=== PATIENT | female | born 1990 | race Caucasian/White ===

== ENCOUNTER → 2021-03-01 13:47 | Outpatient (CLI) | payer OTHER, MEDICAID, SELFPAY ==
[2021-03-01 14:46] LABS: Add Manual Diff / Slide Review NO; Basophils Absolute Auto 0 /uL (0-100); Basophils Percent Auto 0.3 % (0-2); Eosinophils Absolute Auto 100 /uL (0-450); Eosinophils Percent Auto 0.9 % (2-4); Hematocrit 37.3 % (36-46); Hemoglobin 12.7 g/dL (12.0-16.0); Lymphocytes Absolute Auto 2100 /uL (1100-4500); Lymphocytes Percent Auto 24.8 % (25-40); Mean Corpuscular Hemoglobin 32.9 PG (26-34); Monocytes Absolute Auto 800 /uL (0-900); Monocytes Percent Auto 9.5 % (3-14); Neutrophils Absolute Auto 5400 /uL (1500-7000); Neutrophils Percent Auto 64.5 % (50-75); Platelet Count 270 X10^3/uL (150-400); Red Blood Cell Count 3.85 X10^6/uL (4.0-5.2); Red Cell Distribution Width 12.4 % (11.6-14.8); White Blood Cell Count 8.4 X10^3/uL (4.5-11.0)
[2021-03-01 15:14] LABS: Free T4, Direct Thyroxine 0.97 ng/dL (0.78-2.19)
[2021-03-01 15:28] LABS: Thyroid Stimulating Hormone 2.89 uIU/mL (0.47-4.68)
[2021-03-01 15:31] LABS: Appearance Urine UA CLEAR; Bilirubin Urine UA NEGATIVE (NEGATIVE); Color Urine UA YELLOW; Ketones Urine UA NEGATIVE (NEGATIVE); Leukocyte Esterase Urine UA NEGATIVE (NEGATIVE); Nitrite Urine UA NEGATIVE (Negative); Occult Blood Urine UA NEGATIVE (Negative); Protein Urine UA NEGATIVE (Negative); Specific Gravity Urine UA 1.025 (1.000-1.035); Urobilinogen Urine UA 0.2 E.U./dL (0.2)
[2021-03-01 15:46] LABS: Glucose Urine UA NEGATIVE (Negative)
[2021-03-01 17:43] LABS: Hepatitis B Surface Antigen NEGATIVE s/c (NEGATIVE); Rubella Antibody IgG 56.7 IU/mL (>15)
[2021-03-01 17:47] LABS: HIV 1 & 2 Ab/Ag 4th Gen Combo NEGATIVE (NEGATIVE); Hep C Virus Ab w/Reflex Quant NEGATIVE s/c (NEGATIVE)
[2021-03-02 10:19] LABS: RPR Screen Non Reactive (Non Reactive); Varicella IgG Antibody 1154 index (Immune >165)
== END ==
PROVIDERS: Referring Provider Specialist; Visit Provider Specialist
DX: Z34.82 Encounter for supervision of other normal pregnancy, second trimester (principal)
CPT/HCPCS: 36415; 80055; 81003; 84439; 84443; 86787; 86803; 86850; 86900; 86901; 87086; 87389

== ENCOUNTER → 2021-03-20 16:10 | Outpatient (CLI) | payer OTHER, MEDICAID, SELFPAY ==
[2021-03-21 13:30] LABS: Urine N gonorrhoeae NOT DETECTED
[2021-03-21 13:31] LABS: Urine Chlamydia NOT DETECTED
== END ==
PROVIDERS: Visit Provider Specialist
DX: Z34.81 Encounter for supervision of other normal pregnancy, first trimester (principal); R52 Pain, unspecified; Z3A.10 10 weeks gestation of pregnancy
CPT/HCPCS: 87086; 87491; 87591

== ENCOUNTER → 2021-05-23 12:15 | Outpatient (CLI) | payer OTHER, MEDICAID, SELFPAY ==
--- NOTE | 2021-05-23 12:17 | DI.US.S_ITS ---
PROCEDURE: US OB >= 14 WEEKS FETUS INDICATIONS: ANATOMY OUTSIDE/PRIOR DATING DATA: Last menstrual period (LMP): 01/04/21 . LMP-based estimated date of delivery (CONG): 10/11/21 . First dating scan (date and location): 03/01/21 . Estimated date of delivery (CONG) from first dating scan: 10/11/21 . TECHNIQUE: Real-time scanning was performed of the fetus, with image documentation and biometric measurements. Endovaginal scanning: For improved cervical detail COMPARISON: None. FINDINGS: General: A single living intrauterine gestation is present. Presentation: Variable. Placenta: Placental position is posterior with the edge within 2 cm of the internal cervical os Amniotic fluid index: 10.6 cm, normal range is 5-24 cm. heart rate: 153 beats per minute. Maternal cervical canal: 5.1 cm long. Normal lower limit is 2.5 cm. biometrics: Biparietal diameter: 4.5 cm, 19 weeks, four days Head circumference: 17.0 cm, 19 weeks, four days Abdominal circumference: 14.9 cm, 20 weeks, one day Femur length: 3.3 cm, 20 weeks, two days Estimated gestational age from initial scan: 19 weeks, six days Composite gestational age from present scan: 19 weeks, six days Estimated weight and percentile: 336 g, 63rd percentile Anatomic survey: Neuro: Ventricles are non-dilated at less than 10 mm. Cisterna magna is normal at 3-11 mm. Cerebellum is normal in size and morphology. Nuchal skin fold: Normal at less than 6 mm between 14-21 weeks gestational age. Face: Nose and lips, facial profile are normal. Spine: No evidence for spina bifida. Heart: 4-chambered heart is present, with normal ventricular outflow tracts. Diaphragm: Diaphragm is intact. Stomach: Left-sided stomach is present. Kidneys: No hydronephrosis. Normal is less than 5 mm in 2nd trimester, less than 7 mm in 3rd trimester. Cord: 3-vessel cord has orthotopic insertion. Bladder: Normal in size. Extremities: All 4 extremities identified. IMPRESSION: 1. Single living with appropriate growth and normal anatomy. 2. Posterior low-lying placenta. Follow-up ultrasound in early 3rd trimester is recommended. Dictated by: Elin Davila M.D. on 05/23/2021 at 14:41 Approved by: Elin Davila M.D. on 05/23/2021 at 14:49
== END ==
PROVIDERS: Referring Provider Specialist; Visit Provider Specialist
DX: Z34.82 Encounter for supervision of other normal pregnancy, second trimester (principal); Z3A.19 19 weeks gestation of pregnancy
CPT/HCPCS: 76811; 76817; 87210

== ENCOUNTER → 2021-09-17 14:59 | Outpatient (CLI) | payer OTHER, MEDICAID, SELFPAY ==
[2021-09-21 16:20] LABS: Strep Grp B PCR NEG for Grp B Strep
== END ==
PROVIDERS: Visit Provider Specialist
DX: Z34.83 Encounter for supervision of other normal pregnancy, third trimester (principal); Z3A.36 36 weeks gestation of pregnancy
CPT/HCPCS: 87653

== ENCOUNTER 2021-10-03 18:14 | Inpatient (IN) | payer OTHER, MEDICAID, SELFPAY ==
[2021-10-03 19:05] LABS: Add Manual Diff / Slide Review NO; Basophils Absolute Auto 0 /uL (0-100); Basophils Percent Auto 0.4 % (0-2); Eosinophils Absolute Auto 0 /uL (0-450); Eosinophils Percent Auto 0.3 % (2-4); Hematocrit 37.4 % (36-46); Hemoglobin 12.8 g/dL (12.0-16.0); Lymphocytes Absolute Auto 1600 /uL (1100-4500); Lymphocytes Percent Auto 18.4 % (25-40); Mean Corpuscular HGB Conc 34.3 % (30-36); Mean Corpuscular Hemoglobin 32.1 PG (26-34); Mean Corpuscular Volume 93.8 fL (80-100); Monocytes Absolute Auto 800 /uL (0-900); Monocytes Percent Auto 9.5 % (3-14); Neutrophils Absolute Auto 6000 /uL (1500-7000); Neutrophils Percent Auto 71.4 % (50-75); Platelet Count 215 X10^3/uL (150-400); Red Blood Cell Count 3.99 X10^6/uL (4.0-5.2); Red Cell Distribution Width 13.9 % (11.6-14.8); White Blood Cell Count 8.5 X10^3/uL (4.5-11.0)
[2021-10-03 19:21] LABS: COVID19 - ADMIT (NP swab/PCR) Negative (Negative)
[2021-10-03] MEDS: DINOPROSTONE VAG (CERVIDIL) 10 MG VAG (19:44)
[2021-10-04 08:14] VITALS: BP 127/65
--- NOTE | 2021-10-04 08:39 | PM.OBHP.IH.1 ---
OB HPI Date/Time Date of admission: 10/04/21 Date Patient Seen: 10/04/21 Time Patient Seen: 08:30 History of Present Condition Chief complaint: observation of labor CONG Calculator Estimated Delivery Date Method Current WG Current Estimate 10/11/21 LMP (Uncertain) 39w 0d Other Estimates 10/11/21 Ultrasound #1 39w 0d Estimated Gestational Age (weeks): 39 : 4 Para: 3 Narrative: This patient is a 31yo @39+0 presenting for an elective induction of labor. The patient reports feeling well this AM with intermittent contractions with the cervidil in place, but good movement, no LOF or VB, and no other symptoms or concerns. This has been otherwise uncomplicated. care: good care Dating criteria OB: LMP confirmed by 1st trimester US Obstetrical complications: none Medical complications OB: none Preadmission Labs Last OB Lab Results: Blood Type O Positive 10/03/21 18:50 10/03/21 Antibody Screen Negative 10/03/21 18:50 10/03/21 Hematocrit 37.4 % (36-46) 10/03/21 18:50 10/03/21 Hemoglobin 12.8 g/dL (12.0-16.0) 10/03/21 18:50 10/03/21 Hepatitis B Surface Antigen Negative s/c (NEGATIVE) 03/01/21 13:55 03/01/21 Hepatitis C Antibody Negative s/c (NEGATIVE) 03/01/21 13:55 03/01/21 Rubella Antibody 56.7 IU/mL (>15) 03/01/21 13:55 03/01/21 Varicella-Zoster IgG Antibody 1154 index (Immune >165) 03/01/21 13:55 03/01/21 Group B Streptococcus (PCR) Neg for grp b strep 09/17/21 14:59 09/17/21 Glucose Tolerance Testing: Fasting (results not available) -: Chlamydia screen: negative, Gonorrhea screen: negative and Urine: negative Genetic Screens: Quad screen: Normal External Labs -: Urine: negative Prior (ies) Past Pregnancies Del. Date GA/Weeks Labor Lgth Wt Sex Route Outcome Anesthesia Place Delv Breastfeed Preg Comp Name 05/10/10 39.6 4 6 lb 13 oz Female vaginal live - full term epidural CO 4-5 months none Gabi 07/07/13 38 3 6 lb Female vaginal live - full term epidural CO 4-5 months labor José Antonio 07/07/18 35 14 4 lb 6 oz Female vaginal live - epidural CO 24 months delivery Christel Delivery Date: 05/10/10 Last Updated by: Alyssa Phelps R.N. *No issues PP Delivery Date: 07/07/13 Last Updated by: Alyssa Phelps R.N. *One event of PTL : meds to stop at 20 weeks. Delivery Date: 07/07/18 Last Updated by: Alyssa Phelps R.N. *Hospitalized to stop PTL X 24 hours at 26 wga. *SROM Pitocin to enhance labor after 10 hours. Evaluation Evaluation Baseline heart rate: 125 Variability: Moderate (11-25) monitor accelerations: Present Monitor Decelerations: Absent Contraction Frequency (minutes): 6 Category of Tracing: Reactive Status: Category l Dilation (cm): 2 Effacement (%): 80 Dilation: 1-2 cm Effacement: >/=80% station: -2 Position of cervix: mid Consistency: medium Conde score: 7 PFSH Medical History Asthma Bronchitis H/O premature delivery (~07/07/18) History of being hospitalized (~2017) Hypothyroid (~2007) Migraine Ovarian cyst (~2019) (spontaneous vaginal delivery) (~05/10/10) (spontaneous vaginal delivery) (~07/07/13) (spontaneous vaginal delivery) (~07/07/18) Surgical History [place] teeth extracted Family History Father Asthma Mother Hypertension Migraine Grandfather Family estrangement Grandmother Hyperlipidemia Myocardial infarction Heart disease Grandfather No problems noted. 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 Smoking Status: Former smoker Tobacco: How many years used: 14 second hand exposure: No alcohol intake: former (pre- : occasional) substance use type: does not use Meds Home Medications and Allergies Home Medications Medication Instructions Recorded Confirmed Type prenat.vits,jason,[id number] 1 tab PO DAILY 02/26/21 10/03/21 History Allergies Allergy/AdvReac Type Severity Reaction Status Date / Time No Known Drug Allergies Allergy Verified 09/24/21 09:02 Review of Systems Constitutional Constitutional: Reports system reviewed and no additional complaints, except as documented Cardiovascular Cardiovascular: Reports system reviewed and no additional complaints, except as documented Respiratory Respiratory: Reports system reviewed and no additional complaints, except as documented Gastrointestinal Gastrointestinal: Reports system reviewed and no additional complaints, except as documented Genitourinary Genitourinary: Reports as per HPI Musculoskeletal Musculoskeletal: Reports system reviewed and no additional complaints, except as documented Neurologic Neurologic: Reports system reviewed and no additional complaints, except as documented OB Exam Presentation: vertex Estimated Weight (lbs): 7 Objective Labs Result Diagrams: 10/03/21 18:50 Labs: Laboratory Results - last 24 hr 10/03/21 10/03/21 10/03/21 18:50 18:50 18:50 WBC 8.5 RBC 3.99 L Hgb 12.8 Hct 37.4 MCV 93.8 MCH 32.1 MCHC 34.3 RDW 13.9 Plt Count 215 Neut % (Auto) 71.4 Lymph % (Auto) 18.4 L [place] % (Auto) 9.5 Eos % (Auto) 0.3 L Baso % (Auto) 0.4 Neut # (Auto) 6000 Lymph # (Auto) 1600 [place] # (Auto) 800 Eos # (Auto) 0 Baso # (Auto) 0 SARS-CoV-2 (PCR) Negative Blood Type O Positive Antibody Screen Negative Assessment and Plan Assessment and Plan Assessment and Plan narrative: This patient is admitted for elective induction of labor. She is s/p cervidil for further cervical ripening, and is for picotin this AM with plan to AROM when feasible. Epidural on demand. - cEFM, toco - GBS negative
[2021-10-04] MEDS: OXYTOCIN PREMIX 30 UNIT/500 ML PLAST..BAG IV (10:00)
[2021-10-04] MEDS: LACTATED RINGERS 1,000 ML 100 ML IV ×2 (11:11→14:43)
--- NOTE | 2021-10-04 11:47 | PM.OBPNLAB ---
Date/Time Date Patient Seen: 10/04/21 Time Patient Seen: 11:47 Pain Control Pain control: tolerating well Pelvic Exam Dilation (cm): 3 Effacement (%): 80 station: -2 Amniotic membrane status: Intact Comments: possibly OP Contractions Pitocin rate (mU/min): 4 Contraction frequency (min): 3 Contraction duration (min): 1 Contraction pattern: Regular Status status: Category l Heart Rate Baseline: 140 Monitor Decelerations: Early (occasional) Monitor Variability: Moderate Assessment and Plan Assessment: induction ongoing Plan: continuous present management Comments: Discussed position changes to ensure OA presentation, AROM deferred due to station + position
--- NOTE | 2021-10-04 16:13 | PM.OBPNLAB ---
Date/Time Date Patient Seen: 10/04/21 Time Patient Seen: 15:00 Pain Control Pain control: epidural Pelvic Exam Dilation (cm): 5 Effacement (%): 80 station: -1 Amniotic membrane status: Ruptured (clear) Contractions Pitocin rate (mU/min): 8 Contraction frequency (min): 3 Contraction pattern: Regular Status status: Category l Heart Rate Baseline: 120 Monitor Accelerations: Present Monitor Decelerations: Absent Monitor Variability: Moderate Assessment and Plan Assessment: induction ongoing Plan: continuous present management
--- NOTE | 2021-10-04 20:09 | PM.OBPNLAB ---
Date/Time Date Patient Seen: 10/04/21 Time Patient Seen: 20:09 Pain Control Pain control: epidural Pelvic Exam Dilation (cm): 5 Effacement (%): 80 station: -1 Amniotic membrane status: Ruptured (clear) Comments: AROM for forebag, clear fluid. Contractions Pitocin rate (mU/min): 14 Contraction frequency (min): 3 Contraction pattern: Regular Status status: Category l Heart Rate Baseline: 120 Monitor Accelerations: Present Monitor Decelerations: Absent Monitor Variability: Moderate Comments: ++ scalp stim Assessment and Plan Assessment: induction ongoing Plan: continuous present management Comments: Patient with forebag which was ruptured, moving between OP and OT presentation on bedside US. For frequent repositioning, exaggerated heart, etc. Reassuring and maternal status.
--- NOTE | 2021-10-04 21:37 | PM.OBPRVD ---
Events: Labor Induction Labor & Delivery Delivery date: 10/04/21 Intrapartal Events: Acceleration and Deceleration Cervical ripening method: per Cervidil protocol Induction method: per pitocin protocol Delivery augmentation: rupture of membranes Delivery monitor: external FHT and external uterine Route of delivery: L&D Laceration Description: Labial (right) Delivery repair: vicryl Estimated blood loss (mL): 200 Anesthesia Type: Epidural Narrative: This patient presented for elective induction of labor. She underwent cervical ripening with cervidil, and pitocin for induction of labor. She underwent AROM for clear fluid. After a prolonged latent phase, she made rapid change and was delivered after a 1 contraction 2nd stage. She was delivered of a healthy baby boy, apgars 9+9, weight 7#6. 1 loose nuchal cord was reduced at the perineum. The shoulders delivered with ease. A right labial laceration was repaired with interrupted sutures to obtain hemostasis, and the placenta was delivered intact shortly thereafter. There were no intrapartum or immediate complications. Baby [place]: Infant gender: Male Presentation: vertex Position: Left Occiput Anterior Placenta delivery description: Spontaneous Cord Vessel Description: 3 Vessels and Nuchal Cord score (1 min): 9 score (5 min): 9 weight: 7 lb 6 oz Plan for aftercare: Routine care
[2021-10-04] MEDS: ACETAMINOPHEN 325 MG TABLET 650 MG PO (22:16)
[2021-10-04] MEDS: DERMOPLAST SPRAY 20% 60 ML 1 SPRAY TOP (22:17)
[2021-10-04] MEDS: IBUPROFEN 600 MG TABLET PO (22:17)
[2021-10-05] MEDS: ACETAMINOPHEN 325 MG TABLET 650 MG PO (04:22)
[2021-10-05] MEDS: IBUPROFEN 600 MG TABLET PO (04:23)
--- NOTE | 2021-10-05 12:04 | P.DS_ITS ---
Discharge Providers Provider Date of admission: 10/03/21 18:14 Discharge Date: 10/05/21 Primary care physician: Paula Louise MD Consults: 10/03/21 19:29 Consult to Anesthesiology Urgent Comment: Consulting Provider: Anesthesiologist Reason for consultation: Epidural Has provider been notified: No 10/05/21 21:36 Consult to Outpatient Program Coordinator Routine Comment: Discharge provider: Angela Ramirez MD Summary Hospital Course Date Patient Seen: 10/05/21 Time Patient Seen: 12:04 Diagnoses: vaginal delivery Hospital Course: This patient was admitted for elective induction of labor. After a prolonged latent stage and a rapid active stage, she was delivered after 1 push of a 7#6oz baby boy, apgars 9+9, without complication. A small right labial laceration at the site of a prior tear was repaired with 3-0 vicryl in the usual fashion. She had no intrapartum or immediate complications, and was discharged home on PPD#1 with routine precautions. Peripartum Data Delivery Method: Natural Vaginal Laceration Description: Labial complications: none [place]: Gender: Male Disposition of : home Status at Discharge Cognitive/behavioral status at discharge: oriented Functional status at discharge: independent ambulation Overall status at discharge: patient is progressing back to baseline Time Spent with Patient Time attestation: Total time spent providing and/or coordinating discharge services: Time spent: Greater than 30 minutes Objective Labs Result Diagrams: 10/03/21 18:50 Exam Vital Signs (past 8 hours): 99/57, HR 86 97.6F Narrative Exam Narrative: Patient reports feeling well with minimal pain except cramping while , moderate lochia, normal voiding, passing flatus. No BOLAÑOS, visual changes, chest pain. Const General: cooperative, healthy appearing, comfortable and well groomed Resp Effort & Inspection: normal respiratory effort Auscultation: clear to auscultation bilaterally Cardio Rate: regular rate Rhythm: regular rhythm GI Palpation: soft and No tender Skin General: no rashes or lesions noted Extrem Other: 1+ LE edema Discharge Plan Discharge Plan Patient Disposition: Home Discharge orders & Medications Prescriptions: Continued prenat.vits,jason,[id number] Tablet 1 tab PO DAILY 0RF Follow up/Referrals: Paula Louise MD [Primary Care Provider] - 1 Month ( visit) Diet/Activity/Treatments Diet: Regular Activity: Nothing in the vagina for 6 weeks. Avoid lifting more than 10 lbs for 6 weeks. If you have increasing bleeding, fevers, chills, nausea, vomiting, or any other symptoms or concerns, call or come to the emergency room. Skin/Wound/Dressing Care Report to your healthcare provider any signs of infection, such as:: chills, fever, night sweats, increased pain, unusual drainage and unusual redness Visit Report/Discharge Packet Instructions: DI for Labor and Delivery, Vaginal Discharge Data Primary Care Provider: Paula Louise
[2021-10-05 12:32] VITALS: BP 109/69; PULSE 82; RESP 16; TEMP 36.9
== END 2021-10-05 17:03 | disposition home or self-care (01) | DRG 560 ==
PROVIDERS: Admitting Provider Obstetrics & Gynecology; PCP Specialist; Referring Provider Obstetrics & Gynecology; Visit Provider Obstetrics & Gynecology
DX: O76 Abnormality in fetal heart rate and rhythm complicating labor and delivery (principal); O69.81X0 Labor and delivery complicated by cord around neck, without compression, not applicable or unspecified; O70.0 First degree perineal laceration during delivery; Z3A.39 39 weeks gestation of pregnancy; Z37.0 Single live birth; Z20.822 Contact with and (suspected) exposure to COVID-19
CPT/HCPCS: 36415; 59050; 59200; 59409; 76815; 85025; 86850; 86900; 86901; 87635; C9803; G0379; J2590